=== PATIENT | female | born 1990 | race Caucasian/White ===

== ENCOUNTER 2021-01-11 15:33 | Inpatient (IN) | payer OTHER ==
[2021-01-11] MEDS ORDERED: BUPIVACAINE HCL/PF 0.25% (2.5MG/ML) 10 ML VIAL ONE (16:26)
[2021-01-11] MEDS ORDERED: PCA PUMP NR ONE (16:34)
[2021-01-11] MEDS ORDERED: FENTANYL/BUPIVACAINE/NS/PF - PCEA - 50 ML DISP.SYRIN EP ONE (16:35)
[2021-01-11 17:00] LABS: BASO % 0.2 % (0-2.0); EOS % 0.3 % (0-4.5); HEMATOCRIT 31.6 % (32.4-45.2); HEMOGLOBIN 10.4 GM/dL (10.7-15.3); LYMPH % 10.2 % (8-40); MCH 25.5 pg (25.7-33.7); MCHC 32.8 g/dl (32.0-36.0); MEAN CELL VOLUME 77.8 fl (80-96); MEAN PLT VOLUME 8.4 fl (7.5-11.1); MONO % 6.9 % (3.8-10.2); NEUT % 82.4 % (42.8-82.8); PLATELET COUNT 259 K/MM3 (134-434); RBC 4.06 M/mm3 (3.60-5.2); RDW 16.9 % (11.6-15.6); WHITE BLOOD COUNT 8.8 K/mm3 (4.0-10.0)
[2021-01-11] MEDS: ELECTROLYTE-148 SOLN 1,000 ML IV SCH (17:00)
[2021-01-11 17:03] VITALS: BMI 31.9
[2021-01-11] MEDS ORDERED: NALOXONE HCL 0.4 MG/ML VIAL IVPUSH PRN (17:06)
[2021-01-11 17:08] LABS: INR 1.12 (0.83-1.09); PROTHROMBIN TIME (PATIENT) 13.5 SEC (9.7-13.0)
[2021-01-11] MEDS ORDERED: FENTANYL/BUPIVACAINE/NS/PF - PCEA - 50 ML DISP.SYRIN EP SCH (17:15)
[2021-01-11 17:16] LABS: POTASSIUM 3.9 mmol/L (3.5-5.1)
[2021-01-11 17:18] LABS: BLOOD UREA NITROGEN 7.5 mg/dL (7-18); CALCIUM 8.3 mg/dL (8.5-10.1)
[2021-01-11 17:24] LABS: CREATININE 0.4 mg/dL (0.55-1.3)
[2021-01-11 17:47] LABS: SYPHILIS W/ RPR CONF NON-REACTIVE (NONREACTIVE)
[2021-01-11 18:15] LABS: HIV INTERPRETATION NEGATIVE (NEGATIVE)
[2021-01-11] MEDS ORDERED: OXYTOCIN 20 UNITS in 0.9% NS 20 UNIT/1,000 ML INFUS.BAG IV ONE (19:08)
[2021-01-11] MEDS ORDERED: oxyCODONE HCL 5 MG TABLET PO PRN (19:58)
[2021-01-11] MEDS ORDERED: METHYLERGONOVINE MALEATE 0.2 MG/1 ML AMP IM PRN (19:58)
[2021-01-11] MEDS ORDERED: BISACODYL 10 MG SUPP.RECT RC PRN (19:58)
[2021-01-11] MEDS ORDERED: BENZOCAINE 28 GM HEMORRHOIDAL OINTMENT TP PRN (19:58)
[2021-01-11] MEDS ORDERED: BENZOCAINE 20% 57 GM BOTTLE TP PRN (19:58)
[2021-01-11] MEDS ORDERED: WITCH HAZEL 50% (TUCKS) 40 PAD/JAR PAD TP PRN (19:58)
[2021-01-11] MEDS ORDERED: OXYTOCIN 20 UNITS in 0.9% NS 20 UNIT/1,000 ML INFUS.BAG IV SCH (20:00)
[2021-01-11] MEDS ORDERED: DEXTROSE 5%-LACTATED RINGERS 1,000 ML IV SCH (20:00)
[2021-01-11] MEDS ORDERED: IBUPROFEN 600 MG TABLET (FP) PO ONE (21:43)
[2021-01-11] MEDS ORDERED: ACETAMINOPHEN 325 MG TABLET (FP) ONE (21:43)
[2021-01-11] MEDS: IBUPROFEN 600 MG TABLET (FP) PO PRN (21:46)
[2021-01-11] MEDS: ACETAMINOPHEN 325 MG TABLET (FP) PO PRN (21:46)
[2021-01-12] MEDS ORDERED: OXYTOCIN 20 UNITS in 0.9% NS 20 UNIT/1,000 ML INFUS.BAG IV ONE (04:33)
[2021-01-12] MEDS ORDERED: IBUPROFEN 600 MG TABLET (FP) PO ONE (05:18)
[2021-01-12] MEDS ORDERED: ACETAMINOPHEN 325 MG TABLET (FP) ONE (05:18)
[2021-01-12] MEDS: ACETAMINOPHEN 325 MG TABLET (FP) PO PRN (05:23)
[2021-01-12] MEDS: IBUPROFEN 600 MG TABLET (FP) PO PRN (05:23)
[2021-01-12 08:52] LABS: BASO % 0.2 % (0-2.0); EOS % 0.4 % (0-4.5); HEMATOCRIT 29.2 % (32.4-45.2); HEMOGLOBIN 9.5 GM/dL (10.7-15.3); LYMPH % 19.1 % (8-40); MCH 25.9 pg (25.7-33.7); MCHC 32.7 g/dl (32.0-36.0); MEAN CELL VOLUME 79.2 fl (80-96); MEAN PLT VOLUME 8.6 fl (7.5-11.1); NEUT % 73.3 % (42.8-82.8); PLATELET COUNT 232 K/MM3 (134-434); RBC 3.68 M/mm3 (3.60-5.2); RDW 16.6 % (11.6-15.6); WHITE BLOOD COUNT 9.8 K/mm3 (4.0-10.0)
[2021-01-12] MEDS ORDERED: PRENATAL VITAMINS W/ FOLIC ACID TABLET (FP) PO ONE (10:41)
[2021-01-12] MEDS: PRENATAL VITAMINS W/ FOLIC ACID TABLET (FP) PO SCH (10:55)
[2021-01-12] MEDS ORDERED: FENTANYL/BUPIVACAINE/NS/PF - PCEA - 50 ML DISP.SYRIN EP SCH (17:15)
[2021-01-12] MEDS: ELECTROLYTE-148 SOLN 1,000 ML IV SCH (17:30)
[2021-01-12] MEDS ORDERED: SENNOSIDES/DOCUSATE COMBO (SENNA PLUS) TABLET (UD) PO PRN (22:00)
[2021-01-13] MEDS: PRENATAL VITAMINS W/ FOLIC ACID TABLET (FP) PO SCH (09:29)
[2021-01-13 10:19] VITALS: BP 127/74; PULSE 86; TEMP 98.2
== END 2021-01-13 11:40 | disposition home or self-care (01) | DRG 560 ==
LOC: JLDR 15:33 → J3W 01-12 12:45
PROVIDERS: ADMIT Obstetrics & Gynecology; ATTEND Obstetrics & Gynecology
PROC: 10E0XZZ Delivery of Products of Conception, External Approach (ICD-10-PCS; principal; 2021-01-11)
PROC: 10907ZC Drainage of Amniotic Fluid, Therapeutic from Products of Conception, Via Natural or Artificial Opening (ICD-10-PCS; 2021-01-11)
DX: O80 Encounter for full-term uncomplicated delivery (principal); Z3A.37 37 weeks gestation of pregnancy; Z37.0 Single live birth
CPT/HCPCS: 36415; 59409; 80048; 85025; 85610; 85730; 86780; 86850; 86900; 86901; 87389; C9803; U0003; U0005